=== PATIENT | female | born 1990 | race African-American/Black ===

== ENCOUNTER 2018-09-21 09:00 | Emergency (ER) | payer OTHER ==
[~2018-09-21] VITALS: Ht 165.1 cm; Wt 59.0 kg
== END 2018-09-21 11:13 | disposition home or self-care (01) ==
LOC: ER 09:00
DX: S62.630A Displaced fracture of distal phalanx of right index finger, initial encounter for closed fracture (principal); W21.01XA Struck by football, initial encounter; Y92.89 Other specified places as the place of occurrence of the external cause; Y93.61 Activity, american tackle football; Y99.8 Other external cause status